=== PATIENT | female | born 1975 | race Caucasian/White ===

== ENCOUNTER 2021-04-24 13:17 | Inpatient (IN) | payer OTHER ==
[~2021-04-24] VITALS: Ht 154.9 cm; Wt 50.0 kg
[2021-04-24 14:21] LABS: Source, Urine Clean Catch
[2021-04-24 14:28] LABS: Appearance, Urine Hazy (Clear); Bilirubin, Urine Neg (Neg); Blood, Urine Neg (Neg); Color, Urine Yellow (P-Yellow); Glucose Qualitative, Urine Neg (Neg); Ketones, Urine Neg (Neg); Leukocyte Esterase, Urine 3+ (Neg); Nitrite, Urine Neg (Neg); Protein, Urine 2+ (Neg); Urobilinogen, Urine NORM (Normal)
[2021-04-24 14:32] LABS: BASOPHILS ABSOLUTE AUTO 0.03 K/mm3 (0.00-0.23); BASOPHILS PERCENT AUTO 0 % (0-2); EOSINOPHILS ABSOLUTE AUTO 0.02 K/mm3 (0.00-0.68); EOSINOPHILS PERCENT AUTO 0 % (0-6); Hematocrit 42.8 % (33.0-51.0); Hemoglobin 14.1 g/dL (11.5-16.0); IMMATURE GRAN ABSOLUTE AUTO 0.06 K/mm3 (0.00-0.10); IMMATURE GRAN PERCENT AUTO 0 % (0-1); LYMPHOCYTES ABSOLUTE AUTO 2.05 K/mm3 (0.84-5.20); LYMPHOCYTES PERCENT AUTO 14 % (21-46); MONOCYTES ABSOLUTE AUTO 0.39 K/mm3 (0.16-1.47); MONOCYTES PERCENT AUTO 3 % (4-13); Mean Corpuscular HGB 30.4 pg (26.0-34.0); Mean Corpuscular HGB Conc 32.9 g/dL (31.5-36.5); Mean Corpuscular Volume 92 fL (80-100); Mean Platelet Volume 11.1 fL (9.1-12.4); NEUTROPHILS ABSOLUTE AUTO 11.76 K/mm3 (1.96-9.15); NEUTROPHILS PERCENT AUTO 82 % (41-73); Platelet Count 290 K/mm3 (150-400); RDW Standard Deviation 43.9 fL (35.1-46.3); Red Blood Cell Count 4.64 M/mm3 (3.80-5.20); White Blood Cell Count 14.31 K/mm3 (4.00-11.30)
[2021-04-24 14:42] LABS: Granular Casts 0-2 /lpf (0)
[2021-04-24 14:43] LABS: Bacteria Many /hpf; Red Blood Cells, Urine Not Seen /hpf (0-2); Squamous Epithelial Cells Mod /hpf (Few); White Blood Cells, Urine 25-50 /hpf (0-5)
[2021-04-24 15:26] LABS: Alanine Aminotransfer (ALT/SGP 32 U/L (12-78); Albumin, Blood 3.8 g/dL (3.4-5.0); Alk Phos 66 U/L (50-136); Anion Gap 5 mmol/L (6-16); Aspartate Aminotrans (AST/SGOT 14 U/L (12-37); Bilirubin, Total 0.5 mg/dL (0.1-1.0); Blood Urea Nitrogen 14 mg/dL (8-24); Bun/Creatinine Ratio 24.7 (12.0-20.0); CO2, Blood 32 mmol/L (21-32); Calcium, Blood 8.7 mg/dL (8.5-10.1); Chloride, Blood 103 mmol/L (98-108); Creatinine, Blood 0.57 mg/dL (0.40-1.00); Globulin, Blood 3.7 g/dL (2.2-4.0); Glomerular Filtration Rate >60 (60-); Glucose, Blood 90 mg/dL (70-99); Potassium, Blood 3.6 mmol/L (3.5-5.5); Sodium, Blood 140 mmol/L (136-145); Total Protein, Blood 7.5 g/dL (6.4-8.2)
--- NOTE | 2021-04-24 19:04 | NUR ---
SHIFT SUMMARY PT ADMITTED TO UNIT THIS DAVID. PT IS AOX4. PT C/O PAIN. PT DENIES N/V, SOB. PT LEFT UNIT FOR ABOUT 20-30 MINUTES UPON ADMIT TO "GET CHARGING CORD" WITH FAMILY MEMBER. PT APPETITE IS GOOD. PT IS DIFFICULT POKE FOR LAB DRAWS AND THIS RN AND LAB FAILED TO OBTAIN BLOOD SAMPLE FOR LACTIC RESULTS. CHARGE NURSE NOTIFIED AND AWAITING LINE PLACEMENT OR LAB DRAW. PT IS INDEPENDENT IN ROOM. PT HAD VISITOR UPON ADMIT. PLAN IS TO MONITOR LACTIC LEVELS. PT IS IN BED, CALL LIGHT IN REACH, BED IN LOW POSITION.
[2021-04-24] MEDS ORDERED: SUBOXONE 8 MG-1 EACH SL (20:28)
[2021-04-24 21:14] LABS: U Amphetamine Screen Not Detected; U Barbituate Screen Not Detected; U Benzodiazapine Screen Not Detected; U Buprenorphine Screen Not Detected; U Cannabinoids Screen DETECTED; U Cocaine Screen Not Detected; U Methadone Screen Not Detected; U Methamphetamine Screen Not Detected; U Opiates Screen Not Detected; U Oxycodone Screen Not Detected; U Phencyclidine Screen Not Detected; U Propoxyphene Screen Not Detected
[2021-04-25 05:30] LABS: BASOPHILS ABSOLUTE AUTO 0.04 K/mm3 (0.00-0.23); BASOPHILS PERCENT AUTO 0 % (0-2); EOSINOPHILS ABSOLUTE AUTO 0.11 K/mm3 (0.00-0.68); EOSINOPHILS PERCENT AUTO 1 % (0-6); Hematocrit 38.4 % (33.0-51.0); Hemoglobin 12.7 g/dL (11.5-16.0); IMMATURE GRAN ABSOLUTE AUTO 0.04 K/mm3 (0.00-0.10); IMMATURE GRAN PERCENT AUTO 0 % (0-1); LYMPHOCYTES ABSOLUTE AUTO 4.44 K/mm3 (0.84-5.20); LYMPHOCYTES PERCENT AUTO 40 % (21-46); MONOCYTES ABSOLUTE AUTO 0.43 K/mm3 (0.16-1.47); MONOCYTES PERCENT AUTO 4 % (4-13); Mean Corpuscular HGB Conc 33.1 g/dL (31.5-36.5); Mean Corpuscular Volume 91 fL (80-100); Mean Platelet Volume 11.1 fL (9.1-12.4); NEUTROPHILS ABSOLUTE AUTO 6.14 K/mm3 (1.96-9.15); NEUTROPHILS PERCENT AUTO 55 % (41-73); Platelet Count 240 K/mm3 (150-400); RDW Coefficient Variation 13.1 % (11.7-14.2); RDW Standard Deviation 43.7 fL (35.1-46.3); Red Blood Cell Count 4.24 M/mm3 (3.80-5.20)
[2021-04-25 05:52] LABS: Anion Gap 5 mmol/L (6-16); Blood Urea Nitrogen 7 mg/dL (8-24); Bun/Creatinine Ratio 13.3 (12.0-20.0); CO2, Blood 28 mmol/L (21-32); Calcium, Blood 8.1 mg/dL (8.5-10.1); Chloride, Blood 106 mmol/L (98-108); Creatinine, Blood 0.53 mg/dL (0.40-1.00); Glomerular Filtration Rate >60 (60-); Glucose, Blood 86 mg/dL (70-99); Potassium, Blood 3.2 mmol/L (3.5-5.5); Sodium, Blood 139 mmol/L (136-145)
--- NOTE | 2021-04-25 06:07 | NUR ---
SHIFT SUMMARY PT ER ADMIT YESTERDAY EVENING FOR UTI SHE HAS PMH OF CHRONIC UTI'S, UROSEPSIS AND RETENTION. SHE IS CURRENTLY RECEIVING IV ANTIBIOTICS FOR THE UTI. PT REPORTS THAT SHE HAS BEEN VOIDING AND AMBULATES TO THE BATHROOM INDEPENDENTLY. PT REPORTS FLANK PAIN. PT HAS BEEN MEDICATED FOR PAIN FREQUENTLY THIS SHIFT PER EMAR. PT REQUESTS SNACKS AND BEVERAGES T/O THE NIGHT. VITALS ARE STABLE. PT ANXIOUS AND IRRITABLE AT THE START OF THE SHIFT, BUT THE NIGHT PROGRESSED SHE HAS BECOME MORE PLESANT. PT HAS IV ACCESS NEAR HER RIGHT SHOULDER. NEW IV ACCESS ATTEMPTED BY BLOOD BANK BOOKING CLERK WITHOUT SUCCESS. THE IV NEAR SHOULDER IS WORKING AT THIS TIME, BUT IS DIFFICULT TO FLUSH. PT WILL MOSTLY LIKELY NEED ANOTHER FORM OF IV ACCESS SOON. NO OTHER CHANGES TO REPORT, BED IN LOWEST POSITION, CALL LIGHT WITHIN REACH.
--- NOTE | 2021-04-25 17:13 | NUR ---
SHIFT SUMMARY PT IS AOX4. PT MEDICATED FOR PAIN X4 PER EMAR. PT DENIES N/V, SOB. PT IV ACCESS LOST THIS SHIFT DUE TO PT PULLING, THEN INFILTRATION. MEDICATIONS CHANGED TO PO DUE TO DIFFICULT IV START. PT IS INDEPENDENT IN ROOM. PT ATTEMPTED TO LEAVE UNIT TO MEET X2 THIS SHIFT, AFTER PO PAIN MEDICATION GIVEN. THIS RN INSTRUCTED PT TO NOT LEAVE UNIT PER UNIT PROTOCOL. PT APPETITE IS GOOD. PT HAD US OF ABDOMEN TODAY. PT HAS NOT HAD VISITORS YET THIS DAVID. PT REPORTS NO DIFFICULTY URINATING TO THIS RN, THOUGH REPORTS DYSURIA TO PHYSICIAN. BLADDER SCANS ORDERED. PT IS IN BED, CALL LIGHT IN REACH, LOW POSITION.
--- NOTE | 2021-04-25 22:55 | NUR ---
BLADDER SCAN PT REFUSING TO BE BLADDER SCANNED, SHE STATES "IT HURTS TOO MUCH" PT REPORTS THAT SHE HAS BEEN UP TO VOID, AND HAS GONE AOUT 6-7X SINCE THE SHIFT BEGAN.
--- NOTE | 2021-04-26 04:33 | NUR ---
SHIFT SUMMARY PT HAS RESTED ON AND OFF T/O THE NIGHT. PT STILL COMPLAINING OF FLANK PAIN, PT MEDICATED ABOUT Q4HR WITH OXYCODONE. PT INDEPENDENT IN THE ROOM. PT HAS BEEN VOIDING AND HAS GONE SEVERAL TIMES THIS SHIFT. PT STATES THAT SHE FEELS LIKE SHE IS STILL RETAINING, BUT HAS BEEN REFUSING BLADDER SCANS, STATING THAT IS "HURTS TOO MUCH". VITALS ARE STABLE. NO ACUTE CHANGES IN ASSESSMENT. BED IN LOWEST POSITION, CALL LIGHT WITHIN REACH.
[2021-04-26 05:38] LABS: BASOPHILS ABSOLUTE AUTO 0.02 K/mm3 (0.00-0.23); BASOPHILS PERCENT AUTO 0 % (0-2); EOSINOPHILS ABSOLUTE AUTO 0.22 K/mm3 (0.00-0.68); EOSINOPHILS PERCENT AUTO 3 % (0-6); Hematocrit 37.3 % (33.0-51.0); Hemoglobin 12.3 g/dL (11.5-16.0); IMMATURE GRAN ABSOLUTE AUTO 0.03 K/mm3 (0.00-0.10); IMMATURE GRAN PERCENT AUTO 0 % (0-1); LYMPHOCYTES ABSOLUTE AUTO 3.18 K/mm3 (0.84-5.20); LYMPHOCYTES PERCENT AUTO 37 % (21-46); MONOCYTES ABSOLUTE AUTO 0.53 K/mm3 (0.16-1.47); MONOCYTES PERCENT AUTO 6 % (4-13); Mean Corpuscular HGB 30.5 pg (26.0-34.0); Mean Corpuscular Volume 93 fL (80-100); Mean Platelet Volume 11.8 fL (9.1-12.4); NEUTROPHILS ABSOLUTE AUTO 4.54 K/mm3 (1.96-9.15); NEUTROPHILS PERCENT AUTO 53 % (41-73); Platelet Count 260 K/mm3 (150-400); RDW Coefficient Variation 13.2 % (11.7-14.2); RDW Standard Deviation 44.9 fL (35.1-46.3); Red Blood Cell Count 4.03 M/mm3 (3.80-5.20); White Blood Cell Count 8.52 K/mm3 (4.00-11.30)
[2021-04-26 05:58] LABS: Anion Gap 5 mmol/L (6-16); Blood Urea Nitrogen 8 mg/dL (8-24); Bun/Creatinine Ratio 17.5 (12.0-20.0); CO2, Blood 29 mmol/L (21-32); Calcium, Blood 7.9 mg/dL (8.5-10.1); Chloride, Blood 107 mmol/L (98-108); Creatinine, Blood 0.46 mg/dL (0.40-1.00); Glomerular Filtration Rate >60 (60-); Glucose, Blood 87 mg/dL (70-99); Potassium, Blood 3.8 mmol/L (3.5-5.5); Sodium, Blood 141 mmol/L (136-145)
--- NOTE | 2021-04-26 11:45 | NUR ---
DISCHARGE SUMMARY AFTER MEETING WITH AND DISCUSSING PLAN OF DISCHARGE THE PT BECAME VERY UPSET. SHE AGREED TO DISCHARGE AND WANTED TO "GO TO ANOTHER HOSPITAL". PT WANTED TO LEAVE IMMEDIATELY. THIS RN EXPLAINED THAT THE DR WAS PUTTING IN DISCHARGE ORDERS AND I WOULD BRING HER THE PAPER WORK. PT SAID THAT THIS WAS NOT SOON ENOUGH. I OFFERED TO LET THE PT GO AMA AN OPTION IF SHE WOULD NOT LIKE TO WAIT FOR DISCHARGE PAPER WORK. I NOTIFIED THE PHYSICIAN AND SHE WAS AGREEABLE TO THIS OPTION, HOWEVER SHE ALREADY HAD THE DISCHARGE PAPERWORK DONE AND READY TO PRINT. I WENT BACK TO THE PATIENT'S ROOM TO LET HER KNOW THAT THE PAPERWORK WAS READY AND THAT SHE WOULD NOT HAVE TO GO AMA. HOWEVER, WHEN I WENT BACK I FOUND THAT THE PATIENT HAD ALREADY LEFT THE ROOM UNDETECTED. PT DID NOT HAVE AN IV OR TELE.
== END 2021-04-26 11:40 | disposition left against medical advice (07) | DRG 872 ==
LOC: ER 13:17 → MEDS 16:13 → ENPENDDIS 04-26 11:37 → MEDS 04-26 11:40
PROVIDERS: Internal Medicine; Physician Assistant; ADMIT Internal Medicine
DX: A41.9 Sepsis, unspecified organism (principal); N30.00 Acute cystitis without hematuria; N12 Tubulo-interstitial nephritis, not specified as acute or chronic; T80.818A Extravasation of other vesicant agent, initial encounter; R65.20 Severe sepsis without septic shock; F17.210 Nicotine dependence, cigarettes, uncomplicated; Z88.1 Allergy status to other antibiotic agents; Z87.442 Personal history of urinary calculi
CPT/HCPCS: 36415; 76770; 80048; 80053; 81001; 83605; 85025; 87086; 96365; 96372-59; 96375; 99284-25; A9270; J0696; J1650; J1885; J2185; J2270; J2550; J3010; J7030; J7050

== ENCOUNTER 2021-04-28 16:36 | Emergency (ER) | payer OTHER ==
[~2021-04-28] VITALS: Ht 154.9 cm; Wt 49.9 kg
[~2021-04-28 16:36] MED LIST changes: -EPIPEN0.3 MG/0.1 IM
[2021-04-28] MEDS ORDERED: EPIPEN0.3 MG/0.1 IM (20:05)
== END 2021-04-28 20:08 | disposition home or self-care (01) ==
LOC: ER 16:36
DX: T78.2XXA Anaphylactic shock, unspecified, initial encounter (principal); F17.210 Nicotine dependence, cigarettes, uncomplicated; Z91.040 Latex allergy status; Z88.0 Allergy status to penicillin; Z88.8 Allergy status to other drugs, medicaments and biological substances
CPT/HCPCS: 94640; 96372; 99284-25; A9270; J0171; J1100

== ENCOUNTER → 2021-04-28 | Outpatient (CLI) | payer OTHER ==
[~2021-04-28] MED LIST: EPIPEN0.3 MG/0.1 IM; SUBOXONE 8 MG-1 EACH SL
== END | disposition home or self-care (01) ==
LOC: LAB SHORT 14:45 → LAB 14:45
DX: N39.0 Urinary tract infection, site not specified (principal)
CPT/HCPCS: 87086

== ENCOUNTER 2023-05-17 10:03 | Emergency (ER) | payer OTHER ==
[~2023-05-17] VITALS: Ht 152.4 cm; Wt 56.7 kg
[~2023-05-17 10:03] MED LIST changes: +EPIPEN0.3 MG/0.1 IM
[2023-05-17 10:19] VITALS: BP 145/85
== END 2023-05-17 11:40 | disposition home or self-care (01) ==
LOC: ER 10:03
DX: M79.601 Pain in right arm (principal); F17.210 Nicotine dependence, cigarettes, uncomplicated; Z91.040 Latex allergy status; Z91.018 Allergy to other foods; Z88.0 Allergy status to penicillin; Z88.8 Allergy status to other drugs, medicaments and biological substances; W17.89XA Other fall from one level to another, initial encounter
CPT/HCPCS: 73060; 73090; 99283-25